=== PATIENT | female | born 1955 | race Caucasian/White ===

== ENCOUNTER → 2020-09-10 08:02 | Outpatient (CLI) | payer OTHER | END | disposition home or self-care (01) | LOC: LAB 08:02 | PROVIDERS: ATTEND Urology | DX: N39.41 Urge incontinence (principal); N30.00 Acute cystitis without hematuria ==

== ENCOUNTER 2020-09-10 10:03 | Outpatient (CLI) | payer OTHER | END 2020-09-10 10:07 | disposition HB | LOC: SONOGRAMA 10:03 | PROVIDERS: ATTEND Urology | DX: N20.0 Calculus of kidney (principal); N39.41 Urge incontinence ==